=== PATIENT | female | born 1960 | race African-American/Black ===

== ENCOUNTER 2021-10-03 16:16 | Emergency (ER) | payer MEDICAID ==
[~2021-10-03] VITALS: Ht 157.5 cm; Wt 86.0 kg
[~2021-10-03 16:16] MED LIST: GLIP5TAB12 PO; HYDR-3513 PO; METF-818 PO; PRAV10TA35 PO; SULF1TAB48 PO; VIC PO
[2021-10-03] MEDS ORDERED: SODIUM CHLORIDE 0.9% 1,000 ML IV ONE (16:30)
[2021-10-03] MEDS ORDERED: IPRATROPIUM BROMIDE (0.02%) 0.5MG/2.5ML NEB HHN ONE (17:15)
[2021-10-03] MEDS ORDERED: ALBUTEROL (0.083%) 2.5MG/3ML NEB HHN ONE ×2 (17:15)
[2021-10-03 17:16] LABS: BASOPHILS % 0.9 % (0.0-2.0); EOSINOPHILS % 10.6 % (0.0-5.0); HEMATOCRIT. 39.7 % (36.0-48.0); HEMOGLOBIN. 13.2 g/dL (12.0-16.0); LYMPHOCYTES % 37.6 % (20.0-50.0); MEAN CORPUSCULAR HEMOGLOBIN 29.5 pg (28.0-32.0); MEAN PLATELET VOLUME 8.3 fl (7.4-10.4); MONOCYTES % 5.8 % (2.0-8.0); NEUTROPHILS % 45.1 % (40.0-76.0); PLATELET 286 x1000/uL (130-400); RED BLOOD CELL COUNT 4.46 mill/uL (4.2-5.4); RED CELL DISTRIBUTION WIDTH 13.6 % (11.6-14.6)
[2021-10-03 17:24] LABS: CHLORIDE 101 mEq/L (98-107)
[2021-10-03 17:32] LABS: BETA HYDROXYBUTYRATE 0.2 mMol/L (0.0-0.3)
[2021-10-03] MEDS ORDERED: CEFTRIAXONE 1 G PREMIX 50 ML IV ONE (18:00)
[2021-10-03] MEDS ORDERED: AZITHROMYCIN 500 MG TABLET PO SCH (18:00)
[2021-10-03] MEDS ORDERED: INSULIN REGULAR (HUMULIN R) 300UNITS/3ML VIAL SUBCUT ONE (18:00)
[2021-10-03 18:51] VITALS: BP 134/67
== END 2021-10-03 20:38 | disposition left against medical advice (07) ==
LOC: ER 16:16
DX: A41.9 Sepsis, unspecified organism (principal); J18.9 Pneumonia, unspecified organism; F12.10 Cannabis abuse, uncomplicated; F17.210 Nicotine dependence, cigarettes, uncomplicated; R09.02 Hypoxemia; E11.65 Type 2 diabetes mellitus with hyperglycemia; J45.901 Unspecified asthma with (acute) exacerbation; I10 Essential (primary) hypertension; Z20.822 Contact with and (suspected) exposure to COVID-19; Z91.14 Patient's other noncompliance with medication regimen; Z79.84 Long term (current) use of oral hypoglycemic drugs; Z98.890 Other specified postprocedural states; Z88.6 Allergy status to analgesic agent
CPT/HCPCS: 36415; 71045; 80053; 82010; 82962; 83880; 84484; 85025; 87426; 93005; 94640; 96361; 96372; 96374; 99291; J0696; J1815; J7030; Z7610

== ENCOUNTER 2024-05-20 10:41 | Emergency (ER) | payer MEDICAID ==
[~2024-05-20] VITALS: Ht 157.5 cm; Wt 82.0 kg
[~2024-05-20 10:41] MED LIST changes: -GLIP5TAB12 PO; +GLIP5TAB22 PO
[2024-05-20 10:46] VITALS: BP 178/71; TEMP 98.7; O2SAT 99
[2024-05-20 10:49] VITALS: PULSE 105; RESP 18; O2SAT 99
[2024-05-20] MEDS: ACETAMINOPHEN 325MG TABLET PO ONE (13:41)
== END 2024-05-20 15:27 | disposition home or self-care (01) ==
LOC: ER 10:41
DX: M25.562 Pain in left knee (principal); I10 Essential (primary) hypertension; E11.9 Type 2 diabetes mellitus without complications; Z88.6 Allergy status to analgesic agent; Z98.890 Other specified postprocedural states; Z79.899 Other long term (current) drug therapy; W18.30XA Fall on same level, unspecified, initial encounter; Y93.89 Activity, other specified; Y92.89 Other specified places as the place of occurrence of the external cause; Y99.8 Other external cause status
CPT/HCPCS: 73560; 73610; 99284

== ENCOUNTER 2024-07-18 19:00 | Emergency (ER) | payer MEDICAID ==
[~2024-07-18] VITALS: Ht 160 cm; Wt 69.0 kg
[2024-07-18 19:08] VITALS: O2SAT 97
[2024-07-18 20:19] VITALS: BP 148/39; PULSE 64; RESP 18; TEMP 98.8; O2SAT 100
[2024-07-18 20:51] LABS: CLARITY URINE CLEAR (CLEAR); COLOR URINE YELLOW (YELLOW); GLUCOSE URINE 3+ (NEGATIVE); KETONES URINE NEGATIVE (NEGATIVE); LEUKOCYTE ESTERASE URINE NEGATIVE (NEGATIVE); NITRITE URINE NEGATIVE (NEGATIVE); OCCULT BLOOD URINE 1+ (NEGATIVE); PH URINE 5.5 (4.5-8.0); PROTEIN URINE 3+ (NEGATIVE); SPECIFIC GRAVITY URINE 1.028 (1.005-1.030); UROBILINOGEN URINE 0.2 E.U./dL (0.2-1.0)
[2024-07-18 21:07] LABS: BACTERIA URINE TRACE; SQUAMOUS EPITHELIAL CELL URINE FEW /lpf (RARE/1+); WBC URINE 0-2 /hpf (0-2)
== END 2024-07-19 02:31 | disposition left against medical advice (07) ==
LOC: ER 19:00
DX: E11.65 Type 2 diabetes mellitus with hyperglycemia (principal); I10 Essential (primary) hypertension; F10.90 Alcohol use, unspecified, uncomplicated; Z79.84 Long term (current) use of oral hypoglycemic drugs; Z79.899 Other long term (current) drug therapy; Z83.3 Family history of diabetes mellitus; Z88.6 Allergy status to analgesic agent; Y90.9 Presence of alcohol in blood, level not specified
CPT/HCPCS: 81003; 82962; 99283